=== PATIENT | female | born 1960 | race Caucasian/White ===

== ENCOUNTER 2023-10-31 13:03 | Inpatient (IN) | payer MEDICARE, OTHER, SELFPAY ==
[2023-10-31 14:17] VITALS: BP 134/89; PULSE 73; RESP 18; TEMP 36.8; O2SAT 96; O2SAT 97
--- NOTE | 2023-10-31 15:09 | PM.IMHP1 ---
Hospitalist- H&P: HPI History of Present Illness Date Seen: 11/01/23 Chief complaint: direct admit Narrative: Gina Perkins is a 63 year old female past medical history significant for migraine headaches, hyperlipidemia, MDD/anxiety, history of NSTEMI is admitted to medical floor from home for further management colonic abscess. Patient recently experienced abdominal pain with bloating, evaluated in urgent care on 10/16/2023 and diagnosed with diverticulitis. Was started on oral Ceftin and Flagyl which she completed on 10/23/2023. She had a follow-up visit in the clinic with Dr. Bernal on 10/22 and complained of still not being able to tolerate advancing her diet. She was having diarrhea at the time which has persisted without nausea or vomiting. She was not continued on any further antibiotics at that time. A follow-up visit on 10/25 reports improvement with diet and overall feeling better. She return to the clinic on 10/29 with cramping and diarrhea, >6 stools per day. And again, decrease in appetite. A CT of the abdomen pelvis obtained on 10/29 shows near complete resolution of inflammatory fat stranding adjacent to the sigmoid colon with minimal residual colonic wall thickening. However a new tiny 6 mm low-density fluid collection along the medial wall the sigmoid colon compatible with a tiny intramural abscesses noted. Dr. Bernal discussed this finding with Dr. Urrutia, general surgery, recommending outpatient IV antibiotics. Patient was contacted at home and outpatient IV antibiotic therapy was discussed. Per EMR, Patient states that the commute for IV antibiotics and necessity to be out of work is too difficult and requests hospitalization. She is admitted to the hospital for IV antibiotics, general surgery consult. Currently, patient denies dizziness. Has been having around of migraines, likely worsened with dehydration in setting of frequent stools. No fevers. Denies chest pain or shortness of breath. Denies nausea or vomiting. Having frequent loose foul-smelling stools. Having just completed oral antibiotic therapy for diverticulitis. Occasional cramping pains otherwise denies ongoing chronic pain. Nonsmoker. Denies alcohol use. Full code Review of Systems Narrative: REVIEW OF SYSTEMS: Complete review of systems performed and negative unless otherwise stated in HPI or below. [facility] Medical History (Updated 11/01/23 @ 11:13 by Sapphire M DeBus, PA-C) History of non-ST elevation myocardial infarction (NSTEMI) ?I25.2 - Old myocardial infarction (ICD-10) Hyperlipidemia ?E78.5 - Hyperlipidemia, unspecified (ICD-10) Migraine ?G43.909 - Migraine, unspecified, not intractable, without status migrainosus (ICD-10) History of diverticulitis ?Z87.19 - Personal history of other diseases of the digestive system (ICD-10) Depression ?F32.A - Depression, unspecified (ICD-10) Malignant melanoma of right shoulder ?C43.61 - Malignant melanoma of right upper limb, including shoulder (ICD-10) Heart attack ?I21.9 - Acute myocardial infarction, unspecified (ICD-10) Surgical History History of bunionectomy ?Z98.890 - Other specified postprocedural states (ICD-10) History of hysteroscopy ?Z98.890 - Other specified postprocedural states (ICD-10) History of ?Z98.891 - History of uterine scar from previous surgery (ICD-10) History of bilateral knee replacement ?Z96.653 - Presence of artificial knee joint, bilateral (ICD-10) Family History Father Diabetes High blood pressure Cancer of colon with rectum Paternal Grandfather Diabetes Mother FH: mental illness Family/Other FH: mental illness Social History What is your current living situation?: I presently have a place to live Problems where you live: no known problems Problems where you live details: none In the past 12 months, utilities in danger of being shut off: no In past 12 months, lack of transportation kept you from medical appts, meetings, work, or getting things needed for daily living: no In the past 12 mos, have been you worried that your food would run out before you had money to buy more?: never true In the past 12 mos, the food you bought just didn't last and you didn't have money to buy more?: never true Smoking Status: Never smoker How often do you have a drink containing alcohol: never AUDIT-C Alcohol total score: 0 Non-prescribed substance use: denies use How often does anyone, including family, friends and others, physically hurt you: never How often does anyone, including family, friends and others, insult or talk down to you: never How often does anyone, including family, friends and others, threaten you with harm: never How often does anyone, including family, friends and others, scream or curse at you: never Meds Home Medications and Allergies Home Medications ?Medication ?Instructions ?Recorded ?Confirmed ?Type ascorbate calcium (vitamin C) 500 500 mg PO DAILY 11/21/21 10/31/23 History mg tablet atorvastatin 40 mg tablet (Lipitor) 40 mg PO QPM 11/21/21 10/31/23 History calcium carbonate 500 mg-vitamin 1 tab PO DAILY 11/21/21 10/31/23 History D3 5 mcg (200 unit) tablet cholecalciferol (vitamin D3) 50 50 mcg PO DAILY 11/21/21 10/31/23 History mcg (2,000 unit) capsule metoprolol succinate 50 mg 50 mg PO DAILY 11/21/21 10/31/23 History tablet,extended release 24 hr multivitamin with minerals 1 cap PO DAILY 11/21/21 10/31/23 History nitroglycerin 0.4 mg sublingual 0.4 mg sublingual Q5M PRN 11/21/21 10/31/23 History tablet sumatriptan succinate 100 mg tablet 100 mg PO BID PRN 11/21/21 10/31/23 History aspirin 81 mg tablet,delayed 81 mg PO DAILY 10/31/23 10/31/23 History release desvenlafaxine succinate 100 mg 100 mg PO QAM 10/31/23 10/31/23 History tablet,extended release 24 hr meclizine 25 mg chewable tablet 25 mg PO TID PRN 10/31/23 10/31/23 History ([place]) Allergies Allergy/AdvReac Type Severity Reaction Status Date / Time Penicillins Allergy Verified 12/26/21 08:27 Exam Narrative: Exam Narrative: PHYSICAL EXAM General: Pleasant, conversant, NAD HEENT: Normocephalic, atraumatic, sclera white, EOMI, oral mucosa moist Cardiovascular: RRR, S1S2. No pitting edema Pulmonary: CTA bilaterally without rhonchi, rales, expiratory wheezes. No dyspnea on room air Abdominal: Soft, nondistended, in general NTTP, mild right lower quadrant tenderness with deep palpation Neurological: Alert, answering questions appropriately, cranial nerves intact, no focal findings Extremities: No gross joint deformity or swelling. AROMI. Neurovascularly intact Skin: Warm, dry. Hospitalist - H&P: Result Labs Labs: Obtain labs on admission - CBC, CMP, magnesium, phosphorus, CRP Imaging CT scan - abdomen: Attestation: I have reviewed the pertinent imaging results. Radiologist's impression: CT abdomen and pelvis acquired with 100 cc Omnipaque 350 IV contrast. ? COMPARISON: 10/23/2023. ? FINDINGS: Lower chest: Unremarkable. ? Liver: 1.5 centimeter cyst at the dome the right hepatic lobe. Unchanged benign calcification at the dome of the right hepatic lobe. No suspicious hepatic lesion. ? Gallbladder and bile ducts: Unremarkable. No stones or inflammation. No biliary dilatation. ? Pancreas: Unremarkable. No mass or inflammation. ? Spleen: Unremarkable. Normal in size. No masses. ? Adrenal glands: Unremarkable. No nodules. ? Kidneys: Unremarkable. No suspicious masses, stones, or hydronephrosis. ? GI tract: Stomach and small bowel normal. Normal appendix. Near complete resolution of inflammatory fat stranding adjacent to the wall of the sigmoid colon with minimal residual wall thickening. Tiny, 6 millimeter low-density fluid collection along the medial wall of the sigmoid colon, compatible with a tiny intramural abscess (series 2, image 173). No other fluid collection. No free intraperitoneal air. ? Vasculature: Abdominal aorta is normal in caliber. Mesenteric arteries are patent. ? Lymph nodes: No lymphadenopathy. ? Peritoneum/Abdominal Wall: Unremarkable. No sign of mass or infiltration. No free air or significant free fluid. ? Pelvis: Unremarkable. ? Bones: Mild spondylosis. No suspicious osseous lesion. ? IMPRESSION: Near-complete resolution of inflammatory fat stranding adjacent to the sigmoid colon with minimal residual colonic wall thickening. However, new tiny 6 millimeter low-density fluid collection along the medial wall of the sigmoid colon compatible with a tiny intramural abscess. No other fluid collection. No free intraperitoneal air. Assessment and Plan Assessment and plan (1) Abscess of sigmoid colon: Problem comment: CT shows 6 mm low-density fluid collection along the medial wall the sigmoid colon compatible with a tiny intramural abscess Started empirically on ertapenem 1 g Q 24 hours. Assessed by General surgery, Dr. Urrutia. Upon stool resulting positive for C diff, recommendation to discontinue ertapenem as can be managed conservatively without further antibiotics. Outpatient follow-up with PCP. Status: Acute (2) History of diverticulitis: Problem comment: Completed course of Ceftin and Flagyl 10/15-10/22 CT shows near complete resolution of inflammatory fat stranding adjacent to the sigmoid colon with minimal residual colonic wall thickening Status: Acute (3) Diarrhea: Problem comment: C diff positive. GI pathogen panel remains pending at time of discharge, patient denies known or suspected exposures. Status: Acute (4) Migraine: Problem comment: Continue home medications, received IVF hydration. Status: Acute (5) Hyperlipidemia: Problem comment: Continue statin Status: Acute (6) History of non-ST elevation myocardial infarction (NSTEMI): Problem comment: Continue aspirin Status: Acute Plan Possible discharge 1-2 days, pending General surgery recommendations, ongoing therapies Total Time Spent Total Time Spent: Total time spent caring for the patient today was 75 minutes. This includes time spent for the visit reviewing the chart, time spent during the visit, time spent after the visit and documentation and planning in coordination of care.
--- NOTE | 2023-10-31 15:37 | PM.GSCN ---
Documented by User: May Clayton Wirfs 10/31/23 16:58 History of Present Illness Consult details Time Seen by Provider: 14:45 Date Seen: 10/31/23 Consult date: 10/31/23 Reason for consult: abdominal pain Requesting physician: Sapphire Torres Narrative: Gina, a 63 year old female, with a PMH of a NSTEMI, migraine, hyperlipidemia, depression, and bilateral knee replacements, presents from [place] with diverticulitis and an abscess. On 10/13, patient began to have RLQ abdominal pain. Patient went to urgent care on 10/15, imaging was done, and patient was diagnosed with diverticulitis. Patient was discharged on Ceftin and Flagyl for 7 days. Has since finished her course. With the antibiotics, her symptoms improved some and she was able to advance her diet as tolerated. However, after the antibiotics were finished her symptoms began to persist and she got more imaging done on 10/22. Patient states this is when she was diagnosed with diverticulitis and an abscess. No further antibiotics were given. On 10/28 of this week, patient began to experience RLQ abdominal pain, diarrhea, chills, an increase in temperature above her baseline, and eye pain. She sought medical care and imaging was done on 10/29 which showed diverticulitis and an abscess without resolution. Patient was transferred to [facility] and General Surgery was consulted. Denies having had an episode like this before. Denies change in her routine other than eating [address] [employer] before the abdominal pain began on 10/15. Takes daily ASA, last dose today. No A/C use. Takes NSAIDs very rarely. No ETOH use or smoking history. No EGD history. Colonoscopies beginning at age 33 d/t family history of colon cancer. Diagnosed with diverticulosis. No history of blood clots or adverse reaction to anesthesia. Abdominal surgeries include 3 c-sections. Upon admission, reports having RLQ pain, diarrhea, and losing weight/decrease in appetite. Denies blood in diarrhea, vomiting, nausea, urinary symptoms, fever, or chills. Imaging: Labs: 10/15: 4.1 CRP, 8.9 WBC 10/29: 1.9 CRP. 8.9 WBC Review of Systems Status of ROS: Reports: 6 or more systems reviewed and unremarkable except as noted in History and below Narrative: Patient reports having RLQ pain, diarrhea, and losing weight/decrease in appetite. Denies blood in diarrhea, vomiting, nausea, urinary symptoms, fever, or chills. PFSH PFS Medical History (Updated 10/31/23 @ 15:45 by Sapphire Torres PA-C) History of non-ST elevation myocardial infarction (NSTEMI) ?I25.2 - Old myocardial infarction (ICD-10) Hyperlipidemia ?E78.5 - Hyperlipidemia, unspecified (ICD-10) Migraine ?G43.909 - Migraine, unspecified, not intractable, without status migrainosus (ICD-10) History of diverticulitis ?Z87.19 - Personal history of other diseases of the digestive system (ICD-10) Depression ?F32.A - Depression, unspecified (ICD-10) Malignant melanoma of right shoulder ?C43.61 - Malignant melanoma of right upper limb, including shoulder (ICD-10) Heart attack ?I21.9 - Acute myocardial infarction, unspecified (ICD-10) Surgical History History of bunionectomy ?Z98.890 - Other specified postprocedural states (ICD-10) History of hysteroscopy ?Z98.890 - Other specified postprocedural states (ICD-10) History of ?Z98.891 - History of uterine scar from previous surgery (ICD-10) History of bilateral knee replacement ?Z96.653 - Presence of artificial knee joint, bilateral (ICD-10) Family History Father Diabetes High blood pressure Cancer of colon with rectum Paternal Grandfather Diabetes Mother FH: mental illness Family/Other FH: mental illness Social History What is your current living situation?: I presently have a place to live Problems where you live: no known problems Problems where you live details: none In the past 12 months, utilities in danger of being shut off: no In past 12 months, lack of transportation kept you from medical appts, meetings, work, or getting things needed for daily living: no In the past 12 mos, have been you worried that your food would run out before you had money to buy more?: never true In the past 12 mos, the food you bought just didn't last and you didn't have money to buy more?: never true Smoking Status: Never smoker How often do you have a drink containing alcohol: never AUDIT-C Alcohol total score: 0 Non-prescribed substance use: denies use How often does anyone, including family, friends and others, physically hurt you: never How often does anyone, including family, friends and others, insult or talk down to you: never How often does anyone, including family, friends and others, threaten you with harm: never How often does anyone, including family, friends and others, scream or curse at you: never Meds Home Medications and Allergies Home Medications ?Medication ?Instructions ?Recorded ?Confirmed ?Type ascorbate calcium (vitamin C) 500 500 mg PO DAILY 11/21/21 10/31/23 History mg tablet atorvastatin 40 mg tablet (Lipitor) 40 mg PO QPM 11/21/21 10/31/23 History calcium carbonate 500 mg-vitamin 1 tab PO DAILY 11/21/21 10/31/23 History D3 5 mcg (200 unit) tablet cholecalciferol (vitamin D3) 50 50 mcg PO DAILY 11/21/21 10/31/23 History mcg (2,000 unit) capsule metoprolol succinate 50 mg 50 mg PO DAILY 11/21/21 10/31/23 History tablet,extended release 24 hr multivitamin with minerals 1 cap PO DAILY 11/21/21 10/31/23 History nitroglycerin 0.4 mg sublingual 0.4 mg sublingual Q5M PRN 11/21/21 10/31/23 History tablet sumatriptan succinate 100 mg tablet 100 mg PO BID PRN 11/21/21 10/31/23 History aspirin 81 mg tablet,delayed 81 mg PO DAILY 10/31/23 10/31/23 History release desvenlafaxine succinate 100 mg 100 mg PO QAM 10/31/23 10/31/23 History tablet,extended release 24 hr meclizine 25 mg chewable tablet 25 mg PO TID PRN 10/31/23 10/31/23 History ([place]) Allergies Allergy/AdvReac Type Severity Reaction Status Date / Time Penicillins Allergy Verified 12/26/21 08:27 Exam Narrative: Exam Narrative: General: Patient is seen sitting comfortably in bed. Non-toxic appearing. In no acute distress. Answering questions appropriately. HEENT: No trauma. Normocephalic. External ears normal. Respiratory: Clear to auscultation. Normal respiratory effort. No wheezing or rhonchi. Cardiovascular. RRR. GI: Non-distended. Soft. BS+. TTP lower and right of epigastric region. Progress Note:A&P Assessment and plan (1) Diarrhea: Status: Acute (2) Abscess of sigmoid colon: Status: Acute (3) History of diverticulitis: Status: Acute Plan May GARRIDO personally scribed for Dr. Urrutia. Time Spent With Patient Total time spent: 45 Documented by User: Rolanda Urrutia MD 10/31/23 17:19 History of Present Illness Consult details Consult date: 10/31/23 Narrative: Gina, a 63 year old female, with a PMH of a NSTEMI, migraine, hyperlipidemia, depression, and bilateral knee replacements, presents from [place] with diverticulitis and an abscess. On 10/13, patient began to have RLQ abdominal pain. Patient went to urgent care on 10/15, imaging was done, and patient was diagnosed with diverticulitis. Patient was discharged on Ceftin and Flagyl for 7 days. Has since finished her course. With the antibiotics, her symptoms improved some and she was able to advance her diet as tolerated. However, after the antibiotics were finished her symptoms began to persist and she got more imaging done on 10/22. No further antibiotics were given. On 10/28 of this week, patient began to experience RLQ abdominal pain, diarrhea, chills, an increase in temperature above her baseline, and eye pain. She sought medical care and imaging was done on 10/29 which showed diverticulitis which had nearly resolved but with a small intramural abscess. Outpatient antibiotic management was discussed, however the patient did not feel that she would be able to take in sufficient p.o. and therefore was referred to [facility] for IV antibiotics and bowel rest. She states that the pain is intermittent and worse when she has bowel movements. She has been having loose stools ?since the pain began. They did not resolve after stopping antibiotics. Denies having had an episode like this before. Denies change in her routine other than eating [place] [place] before the abdominal pain began on 10/15. Takes daily ASA, last dose today. No A/C use. Takes NSAIDs very rarely. No ETOH use or smoking history. No EGD history. Colonoscopies beginning at age 33 d/t family history of colon cancer she is due for another colonoscopy next year. She gets colonoscopies every 5 years. She has been previously diagnosed with diverticulosis. No history of blood clots or adverse reaction to anesthesia. Abdominal surgeries include 3 c-sections. Upon admission, reports having RLQ pain, diarrhea, and losing weight/decrease in appetite. Denies blood in diarrhea, vomiting, nausea, urinary symptoms, fever, or chills. [facility] Medical History (Updated 10/31/23 @ 15:45 by Sapphire Torres PA-C) History of non-ST elevation myocardial infarction (NSTEMI) ?I25.2 - Old myocardial infarction (ICD-10) Hyperlipidemia ?E78.5 - Hyperlipidemia, unspecified (ICD-10) Migraine ?G43.909 - Migraine, unspecified, not intractable, without status migrainosus (ICD-10) History of diverticulitis ?Z87.19 - Personal history of other diseases of the digestive system (ICD-10) Depression ?F32.A - Depression, unspecified (ICD-10) Malignant melanoma of right shoulder ?C43.61 - Malignant melanoma of right upper limb, including shoulder (ICD-10) Heart attack ?I21.9 - Acute myocardial infarction, unspecified (ICD-10) Surgical History History of bunionectomy ?Z98.890 - Other specified postprocedural states (ICD-10) History of hysteroscopy ?Z98.890 - Other specified postprocedural states (ICD-10) History of ?Z98.891 - History of uterine scar from previous surgery (ICD-10) History of bilateral knee replacement ?Z96.653 - Presence of artificial knee joint, bilateral (ICD-10) Family History Father Diabetes High blood pressure Cancer of colon with rectum Paternal Grandfather Diabetes Mother FH: mental illness Family/Other FH: mental illness Social History What is your current living situation?: I presently have a place to live Problems where you live: no known problems Problems where you live details: none In the past 12 months, utilities in danger of being shut off: no In past 12 months, lack of transportation kept you from medical appts, meetings, work, or getting things needed for daily living: no In the past 12 mos, have been you worried that your food would run out before you had money to buy more?: never true In the past 12 mos, the food you bought just didn't last and you didn't have money to buy more?: never true Smoking Status: Never smoker How often do you have a drink containing alcohol: never AUDIT-C Alcohol total score: 0 Non-prescribed substance use: denies use How often does anyone, including family, friends and others, physically hurt you: never How often does anyone, including family, friends and others, insult or talk down to you: never How often does anyone, including family, friends and others, threaten you with harm: never How often does anyone, including family, friends and others, scream or curse at you: never Meds Home Medications and Allergies Home Medications ?Medication ?Instructions ?Recorded ?Confirmed ?Type ascorbate calcium (vitamin C) 500 500 mg PO DAILY 11/21/21 10/31/23 History mg tablet atorvastatin 40 mg tablet (Lipitor) 40 mg PO QPM 11/21/21 10/31/23 History calcium carbonate 500 mg-vitamin 1 tab PO DAILY 11/21/21 10/31/23 History D3 5 mcg (200 unit) tablet cholecalciferol (vitamin D3) 50 50 mcg PO DAILY 11/21/21 10/31/23 History mcg (2,000 unit) capsule metoprolol succinate 50 mg 50 mg PO DAILY 11/21/21 10/31/23 History tablet,extended release 24 hr multivitamin with minerals 1 cap PO DAILY 11/21/21 10/31/23 History nitroglycerin 0.4 mg sublingual 0.4 mg sublingual Q5M PRN 11/21/21 10/31/23 History tablet sumatriptan succinate 100 mg tablet 100 mg PO BID PRN 11/21/21 10/31/23 History aspirin 81 mg tablet,delayed 81 mg PO DAILY 10/31/23 10/31/23 History release desvenlafaxine succinate 100 mg 100 mg PO QAM 10/31/23 10/31/23 History tablet,extended release 24 hr meclizine 25 mg chewable tablet 25 mg PO TID PRN 10/31/23 10/31/23 History (Bonine) Allergies Allergy/AdvReac Type Severity Reaction Status Date / Time Penicillins Allergy Verified 12/26/21 08:27 Exam Narrative: Exam Narrative: General: Patient is seen sitting comfortably in bed. Non-toxic appearing. In no acute distress. Answering questions appropriately. HEENT: No trauma. Normocephalic. External ears normal. Respiratory: Clear to auscultation. Normal respiratory effort. No wheezing or rhonchi. Cardiovascular. RRR. GI: Non-distended. Soft. BS+. Mildly TTP lower and right of epigastric region. Results Labs Labs: 10/15: 4.1 CRP, 8.9 WBC 10/29: 1.9 CRP. 8.9 WBC Imaging Ab[address] CT scan report/results: report reviewed and image reviewed Additional studies: [facility] scan from [facility] on 10/16/2023: IMPRESSION: Acute diverticulitis sigmoid colon without evidence of abscess. CT scan from 10/23/2023: IMPRESSION: 1. Mildly improved but persistent uncomplicated sigmoid diverticulitis. Further imaging is recommended following the acute episode to exclude possibility of underlying mass. CT scan from 10/30/2023: IMPRESSION: Near-complete resolution of inflammatory fat stranding adjacent to the sigmoid colon with minimal residual colonic wall thickening. However, new tiny 6 millimeter low-density fluid collection along the medial wall of the sigmoid colon compatible with a tiny intramural abscess. No other fluid collection. No free intraperitoneal air. Progress Note:A&P Assessment and plan (1) Diarrhea: Status: Acute (2) Abscess of sigmoid colon: Status: Acute (3) History of diverticulitis: Status: Acute Plan The patient is 63-year-old female with likely resolving diverticulitis though with possible small 6 mm persistent abscess. Since she has completed outpatient management of IV antibiotics but has persistent symptoms IV antibiotics was recommended. She did not feel she would be able to manage as an outpatient because of inability to take in p.o. therefore she was admitted for observation. We discussed diverticulitis, pathology and management. I explained that with uncomplicated diverticulitis, 30% of people will recur. This can sometimes be managed without antibiotics and with bowel rest alone. Emergency surgery is indicated in the setting of perforation and peritonitis. Elective surgery is considered for multiple recurrent episodes, perforation with large abscess and or complications from diverticulitis treatment. I believe most of her symptoms are secondary to diarrhea that she has been having since she describes abdominal cramping and then loose stools. Stool cultures and C diff are pending. White blood cell count at [facility] was normal in CRP was trending down, however if C diff appears to be the culprit, then I would recommend treating with oral vancomycin. -for now clear liquid diet and IV ertapenem. -may be able to discharge on IV antibiotics for 7-10 days depending on clinical course. -advance diet once patient's pain has resolved. May RODRIGUEZS personally scribed portions of this note for Dr. Urrutia.
[2023-10-31] MEDS: 0.9 % SODIUM CHLORIDE 1000 ml 1,000 ML 125 ML IV (15:46)
[2023-10-31] MEDS: ERTAPENEM 1 GM in 0.9 % SODIUM CHLORIDE Mini-bag 100 ML IVPB (15:46)
[2023-10-31 16:45] VITALS: BP 115/78; BP 123/87; BP 131/87; PULSE 69; PULSE 75; PULSE 81
[2023-10-31 17:32] LABS: Basophils Absolute Auto 0.05 K/uL (0.00-0.30); Basophils Percent Auto 0.8 % (0.0-3.0); Eosinophils Absolute Auto 0.14 K/uL (0.00-0.50); Eosinophils Percent Auto 2.4 % (0.0-7.0); Hematocrit 42.9 % (33.0-51.0); Hemoglobin* 13.8 gm/dL (12.0-16.0); Lymphocytes Absolute Auto 1.72 K/uL (0.90-2.90); Lymphocytes Percent Auto 29.2 % (20-44); Mean Corpuscular HGB Conc 32 gm/dL (32-36); Mean Corpuscular Hemoglobin 30 pg (26-34); Mean Corpuscular Volume 92 fL (80-100); Monocytes Percent Auto 10.5 % (0.0-11.0); Neutrophils Absolute Auto 3.37 K/uL (1.7-7.0); Neutrophils Percent Auto 57.1 % (42.0-72.0); Platelet Count* 250 K/uL (140-440); RDW Coefficient of Variation % 12.1 % (11.5-15.5); Red Blood Count 4.68 m/uL (4.00-5.20)
[2023-10-31 17:33] LABS: Slide Review Reflex No
[2023-10-31 17:48] LABS: Albumin* 4.5 g/dL (3.3-5.0); Chloride* 99 mmol/L (96-114); Sodium* 137 mmol/L (135-149)
[2023-10-31 17:49] LABS: Potassium* 4.3 mmol/L (3.6-5.1)
[2023-10-31 17:50] LABS: Creatinine* 0.7 mg/dL (0.5-1.5); Estimated Glomerular Filt Rate 96 ml/min
[2023-10-31 17:51] LABS: Alanine Aminotransferase* 25 U/L (4-35); Alkaline Phosphatase* 83 U/L (40-150); Anion Gap 10 mEq/L (7-15); Aspartate Amino Transferase* 40 U/L (12-35); Bilirubin Total* 0.6 mg/dL (0.1-1.5); Blood Urea Nitrogen* 13 mg/dL (7-30); Carbon Dioxide* 28 mmol/L (20-32); Glucose* 91 mg/dL (60-115); Total Protein* 7.3 g/dL (6.0-8.3)
[2023-10-31 17:52] LABS: Calcium* 9.3 mg/dL (8.4-10.6); Magnesium* 2.1 mg/dL (1.5-2.6); Phosphorus* 3.6 mg/dL (2.5-4.5)
[2023-10-31 17:54] LABS: C Reactive Protein* 0.6 mg/dL (0.5-1.0)
[2023-10-31 19:00] VITALS: BP 115/75; PULSE 73; RESP 18; TEMP 36.6; O2SAT 98
--- NOTE | 2023-10-31 19:04 | PC.NURSE ---
The patient arrived to the floor this afternoon after recommendation from the clinic. Presents with many days of diarrhea and decreased PO intake/appetite. The patient rates her pain at 2/10 in her RLQ. Stool sample was collected and given to lab. Up ad alejandro. Normal saline infusing @ 125. Iv abx infused. NPO, and surgical consult was completed. Call light within the patients reach. The patient appears to be comfortable and is talking on the phone. Amy VIZCAINO BSN
[2023-10-31 19:27] LABS: CDIFFEPI 027 PRESUMPTIVE NEGATIVE (Negative)
[2023-10-31 19:45] LABS: C.Difficile POSITIVE (Negative)
[2023-10-31] MEDS: ENOXAPARIN 30 MG/0.3ML INJ SUBCUT (21:01)
[2023-10-31] MEDS: VANCOMYCIN 125 MG CAPSULE PO (21:01)
[2023-10-31 23:00] VITALS: RESP 18
[2023-11-01] MEDS: 0.9 % SODIUM CHLORIDE 1000 ml 1,000 ML 125 ML IV (00:17)
[2023-11-01 00:21] VITALS: BP 111/70; PULSE 66; RESP 18; TEMP 36.8; O2SAT 95
[2023-11-01 03:00] VITALS: BP 116/71; PULSE 85; RESP 18; TEMP 37.3; O2SAT 96
[2023-11-01 06:37] LABS: Hematocrit 39.8 % (33.0-51.0); Hemoglobin* 12.9 gm/dL (12.0-16.0); Mean Corpuscular HGB Conc 32 gm/dL (32-36); Mean Corpuscular Hemoglobin 30 pg (26-34); Mean Corpuscular Volume 92 fL (80-100); Platelet Count* 214 K/uL (140-440); Red Blood Count 4.34 m/uL (4.00-5.20); White Blood Count* 8.48 K/uL (4.50-11.00)
[2023-11-01 06:44] LABS: Slide Review Reflex No
[2023-11-01 06:53] LABS: Chloride* 106 mmol/L (96-114); Sodium* 138 mmol/L (135-149)
[2023-11-01 06:54] LABS: Potassium* 3.4 mmol/L (3.6-5.1)
[2023-11-01 06:56] LABS: Creatinine* 0.6 mg/dL (0.5-1.5); Estimated Glomerular Filt Rate 100 ml/min
[2023-11-01 06:57] LABS: Anion Gap 11 mEq/L (7-15); Blood Urea Nitrogen* 10 mg/dL (7-30); Calcium* 8.5 mg/dL (8.4-10.6); Carbon Dioxide* 21 mmol/L (20-32); Glucose* 69 mg/dL (60-115)
--- NOTE | 2023-11-01 07:21 | PC.NURSE ---
: Pleasant and cooperative. Indep in room. Reports only 1 loose stool this shift. No c/o n/v.?Educated pt on new Dx of CDiff, questions answered. ?
[2023-11-01 08:44] VITALS: BP 123/75; PULSE 75; PULSE 85; RESP 16; RESP 18; TEMP 36.6; O2SAT 98
[2023-11-01] MEDS: VANCOMYCIN 125 MG CAPSULE PO (10:00)
[2023-11-01 11:00] VITALS: BP 119/72; PULSE 75; RESP 16; O2SAT 97
--- NOTE | 2023-11-01 11:08 | PM.DS1 ---
DS: Providers Provider Date Seen: 11/01/23 Date of admission: 10/31/23 15:05 Primary care physician: Not a Local Provider Admitting Clinician: Sapphire Torres PA-C Consults: 10/31/23 15:07 Consult to Physician [CONS] Routine Comment: Consulting Provider: Rolanda Urrutia Has provider been notified: Yes Attending Physician on discharge[facility]: [facility]23 DS: Diagnosis Discharge Diagnosis (1) Clostridioides difficile diarrhea: Status: Acute Problem details: Stool test positive. Started on oral vancomycin q.i.d. times 10 days. Stool frequency decreasing prior to discharge. Patient reports no further abdominal pain/cramping. (2) Abscess of sigmoid colon: Status: Acute Problem details: CT shows 6 mm low-density fluid collection along the medial wall the sigmoid colon compatible with a tiny intramural abscess Started empirically on ertapenem 1 g Q 24 hours. Assessed by General surgery, Dr. Urrutia. Upon stool resulting positive for C diff, recommendation to discontinue ertapenem as can be managed conservatively without further antibiotics. Outpatient follow-up with PCP. (3) History of diverticulitis: Status: Acute Problem details: Completed course of Ceftin and Flagyl 10/15-10/22 CT shows near complete resolution of inflammatory fat stranding adjacent to the sigmoid colon with minimal residual colonic wall thickening (4) Diarrhea: Status: Acute Problem details: C diff positive. GI pathogen panel remains pending at time of discharge, patient denies known or suspected exposures. (5) Migraine: Status: Acute Problem details: Continue home medications, received IVF hydration. (6) Hyperlipidemia: Status: Acute Problem details: Continue statin (7) History of non-ST elevation myocardial infarction (NSTEMI): Status: Acute Problem details: Continue aspirin DS: Summary Hospital Course Hospital Course: [age] year old female was admitted to the medical floor for diarrhea, concern for 6 mm colon abscess. Course of care and details as noted above. Initiated on IV ertapenem, discontinued when C difficile resulted positive. Discharged to home with oral vancomycin for 10 day course. Outpatient follow-up with PCP. Remainder of chronic medical comorbidities were monitored and managed with home medications. Status at Discharge Functional status at discharge: independent ambulation Overall status at discharge: patient is back to baseline Time Spent with Patient Time attestation: Total time spent providing and/or coordinating discharge services: Time spent: Greater than 30 minutes Exam Narrative: Exam Narrative: PHYSICAL EXAM General: Pleasant, conversant, NAD Cardiovascular: RRR Pulmonary: No dyspnea Neurological: Alert, answering questions appropriately Skin: Warm, dry. Const: Vital Signs, click to edit/add: Vital Signs - 24 hr 10/31/23 14:17 10/31/23 14:17 10/31/23 16:45 Temperature 98.3 F Pulse Rate [Right Pulse Oximeter] 73 Pulse Rate [orthos tatic lying Pulse Oximeter] 69 Pulse Rate [orthos tatic sitting Puls e Oximeter] 75 Pulse Rate [orthos tatic standing Pul se Oximeter] 81 Respiratory Rate 18 18 Blood Pressure [Ri ght Arm] 134/89 Blood Pressure [or thostatic lying Ri ght Arm] 115/78 Blood Pressure [or thostatic sitting Right Arm] 123/87 Blood Pressure [or thostatic standing Right Arm] 131/87 Pulse Oximetry 96 97 Oxygen Delivery Me thod Room Air Room Air 10/31/23 19:00 10/31/23 23:00 11/01/23 00:21 Temperature 97.8 F 98.3 F Pulse Rate [Right Pulse Oximeter] 73 66 Pulse Rate [orthos tatic lying Pulse Oximeter] Pulse Rate [orthos tatic sitting Puls e Oximeter] Pulse Rate [orthos tatic standing Pul se Oximeter] Respiratory Rate 18 18 18 Blood Pressure [Ri ght Arm] 115/75 111/70 Blood Pressure [or thostatic lying Ri ght Arm] Blood Pressure [or thostatic sitting Right Arm] Blood Pressure [or thostatic standing Right Arm] Pulse Oximetry 98 95 Oxygen Delivery Me thod Room Air Room Air 11/01/23 03:00 11/01/23 08:44 11/01/23 08:44 Temperature 99.2 F 97.9 F Pulse Rate [Right Pulse Oximeter] 85 85 75 Pulse Rate [orthos tatic lying Pulse Oximeter] Pulse Rate [orthos tatic sitting Puls e Oximeter] Pulse Rate [orthos tatic standing Pul se Oximeter] Respiratory Rate 18 18 16 Blood Pressure [Ri ght Arm] 116/71 123/75 Blood Pressure [or thostatic lying Ri ght Arm] Blood Pressure [or thostatic sitting Right Arm] Blood Pressure [or thostatic standing Right Arm] Pulse Oximetry 96 98 Oxygen Delivery Me thod Room Air Room Air DS: Data Data Completed and Pending Pending studies at discharge: GI pathogen panel Labs on day of discharge: Labs from last 24 hours 11/01/23 10/31/23 10/31/23 05:59 18:00 17:20 WBC 8.48 5.90 RBC 4.34 4.68 Hgb 12.9 13.8 Hct 39.8 42.9 MCV 92 92 MCH 30 30 MCHC 32 32 RDW Coeff of Eve 12.1 Plt Count 214 250 Neut % (Auto) 57.1 Lymph % (Auto) 29.2 Pender % (Auto) 10.5 Eos % (Auto) 2.4 Baso % (Auto) 0.8 Neut # (Auto) 3.37 Lymph # (Auto) 1.72 Pender # (Auto) 0.60 Eos # (Auto) 0.14 Baso # (Auto) 0.05 Abs Immat Gran (auto) 0.00 Imm/Tot Granulo (auto) 0.0 Sodium 138 137 Potassium 3.4 L 4.3 Chloride 106 99 Carbon Dioxide 21 28 Anion Gap 11 10 BUN 10 13 Creatinine 0.6 0.7 Estimated GFR 100 96 Glucose 69 91 Calcium 8.5 9.3 Phosphorus 3.6 Magnesium 2.1 Total Bilirubin 0.6 AST 40 H ALT 25 Alkaline Phosphatase 83 C-Reactive Protein 0.6 Total Protein 7.3 Albumin 4.5 Stl C. cayetanensis PCR Pending Stool Rotavirus A PCR Pending Stool Adenovirus (PCR) Pending Stool Astrovirus (PCR) Pending Stool Campylobacter PCR Pending Stl C. diff Tox B Gene POSITIVE A* Stl C. diff [id number] PRESUMPTIVE NEGATIVE Stool Cryptosporidium PCR Pending Stl E.coli Shiga Tox PCR Pending Stool E coli O157 PCR Pending Stl Enterotoxigenic E PCR Pending Stool EPEC (PCR) Pending Stool EAEC (PCR) Pending Stl E. histolytica PCR Pending Stool Giardia Lamblia PCR Pending Stl P. shigelloides PCR Pending Stool Salmonella PCR Pending Stool Sapovirus (PCR) Pending Stl Shigella/EIEC PCR Pending St Y.enterocolitica PCR Pending Stool Vibrio (PCR) Pending Stl Vibrio cholerae PCR Pending Stl Norovirus GI/GII PCR Pending Discharge Plan Discharge Disposition: Home, Self-Care Date of Admission: 10/31/23 15:05 Attending Provider on Discharge: Sapphire Torres Consulting Providers: Rolanda Urrutia Primary Care Provider: Provider,Not a Local Condition: Improved Anticipated Discharge Date/Time: 11/01/23 10:21 Discharge Medications: New vancomycin 125 mg Capsule 125 mg PO QID 10 Days Qty: 40 0RF Continued ascorbate calcium (vitamin C) 500 mg tablet 500 mg PO DAILY atorvastatin [Lipitor] 40 mg tablet 40 mg PO QPM calcium carbonate-vitamin D3 500 mg-5 mcg (200 unit) tablet 1 tab PO DAILY cholecalciferol (vitamin D3) 50 mcg (2,000 unit) capsule 50 mcg PO DAILY metoprolol succinate 50 mg tablet extended release 24 hr 50 mg PO DAILY multivitamin with minerals Capsule 1 cap PO DAILY nitroglycerin 0.4 mg tablet, sublingual 0.4 mg sublingual Q5M PRN Rx Instructions: do not exceed 3 doses per episode sumatriptan succinate 100 mg tablet 100 mg PO BID PRN aspirin 81 mg tablet,delayed release (DR/EC) 81 mg PO DAILY desvenlafaxine succinate 100 mg tablet extended release 24 hr 100 mg PO QAM meclizine [Bonine] 25 mg tablet,chewable 25 mg PO TID PRN Discharge Orders: Discharge Order (Routine); Ordered 11/01/23 Ordered By: Sapphire Torres Patient Education: Vancomycin (By mouth), C. Diff (Clostridioides Difficile) Infection (GEN) Activity Level: No Restrictions Discharge Diet: Regular Diet Detail: BRAT diet, yogurt with live cultures Follow Up Appointments: Lesvia Bernal MD [Staff Physician] - 11/12/23 1:00 pm ([facility] for follow-up.) Forms: [employer] Info Instructions
--- NOTE | 2023-11-01 13:15 | PC.NURSE ---
Nursing Care Hours: [id number] Pt this shift calm and cooperative, alert and oriented. Independent in the room. No c/o pain. Teary eyed when talking about c.diff and symptoms. Pt states I feel dirty and signs of feeling ashamed. Discussed it being a somewhat common consequence of antibiotics and that it is nothing she did wrong. Also talked about different sources of probiotics. Advanced to regular diet with coffee. Pt had two loose stools afterwards which she questioned. Discussed that we will expect some loose stools for the next couple of days but it should slow down and start bulking. Denies cramps. Also discussed holding back on coffee as this is a natural laxative effect. IV removed for discharge. Forms signed. Pt ambulated off the unit in stable condition.
[2023-11-03 01:57] LABS: Adenovirus PCR Not Detected; Astrovirus PCR Not Detected; Campylobacter PCR Not Detected; Cryptosporidium PCR Not Detected; Cyclospora cayetanensis PCR Not Detected; Entamoeba histolytica PCR Not Detected; Enteroaggregative E coli PCR Not Detected; Enteropathogenic E coli PCR Not Detected; Enterotoxigenic E coli PCR Not Detected; Giardia lamblia PCR Not Detected; Norovirus Gi/GII PCR Detected; Plesiomonas shig PCR Not Detected; Rotavirus A PCR Not Detected; Salmonella PCR Not Detected; Sapovirus PCR Not Detected; Shiga toxin E coli PCR Not Detected; Shigella/Enteroinvasive E coli Not Detected; Vibrio PCR Not Detected; Vibrio cholerae PCR Not Detected; Yersinia enterocolitica PCR Not Detected
== END 2023-11-01 11:42 | disposition home or self-care (01) | DRG 372 ==
PROVIDERS: Admitting Provider Physician Assistant; Visit Provider Family Medicine
DX: A04.72 Enterocolitis due to Clostridium difficile, not specified as recurrent (principal); K57.20 Diverticulitis of large intestine with perforation and abscess without bleeding; A08.11 Acute gastroenteropathy due to Norwalk agent; G43.909 Migraine, unspecified, not intractable, without status migrainosus; I25.2 Old myocardial infarction; R10.31 Right lower quadrant pain; F32.9 Major depressive disorder, single episode, unspecified; F41.9 Anxiety disorder, unspecified; E78.5 Hyperlipidemia, unspecified; Z96.653 Presence of artificial knee joint, bilateral
CPT/HCPCS: 36415; 80048; 80053; 83735; 84100; 85025; 85027; 86140; 87493; 87505; J1335; J1650; J7030

== ENCOUNTER 2024-10-14 19:08 | Emergency (ER) | payer MEDICARE, OTHER, SELFPAY ==
--- OUTSIDE RECORDS SUMMARY | 2024-10-14 19:13 | XMS_ITS | Clinical Summary ---
Author Organization [facility] Address [address] [place] [id number] Care Team Providers Care Youth Associate Name Role Phone Lesvia Bernal MD Primary Care Prov ider Allergies Active Allergy Reactions Criticality Noted Date Comments Mirtazapine Other - Describe In Comment Field 06/10/2021 Over-sedated, groggy, out of it for 5 days Penicillins Rash 11/13/2013 Medications multivitamin (MVI) tablet Take 1 tablet by mouth once daily. 0 5 Active ascorbic acid (VITAMIN C) 500 mg tablet Take 1 tablet by mouth once daily. 0 6 Active calcium with vitamin D3 (CALCIUM 500+D) tablet Take 1 tablet by mouth once daily with a meal. 0 7 Active aspirin (ECOTRIN) 81 mg enteric coated tablet Take 1 tablet by mouth once daily with a meal. 0 7 Active nitroglycerin (NITROSTAT) 0.4 mg sublingual tabletIndications:N STEMI (non-ST elevated myocardial infarction) (HC) Place 1 tablet under the tongue every 5 minutes if needed for Chest Pain (first choice for chest pain). 1 Bottle 1 8 Active Cholecalciferol, Vitamin D3, 2,000 unit tabletIndications:M ixed hyperlipidemia Take 1 tablet by mouth once daily. 0 8 Active atorvastatin (LIPITOR) 40 mg tabletIndications:M ixed hyperlipidemia Take 1 Tablet (40 mg) by mouth once daily with evening meal. 90 Tablet 3 5 Active metoprolol succinate (TOPROL XL) 50 mg sustained-release tabletIndications:M igraine with aura and without status migrainosus, not intractable Take 1 Tablet (50 mg) by mouth once daily. 90 Tablet 3 5 Active SUMAtriptan (IMITREX) 100 mg tabletIndications:M igraine with aura and without status migrainosus, not intractable TAKE ONE TABLET BY MOUTH TWICE A DAY NEEDED FOR MIGRAINE. TAKE AT MINIMUM OF 2 HOURS APART. MAX DOSE 200MG / 24HRS 18 Tablet 2 5 Active desvenlafaxine succinate 100 mg extended release tabletIndications:A nxiety Take 1 Tablet (100 mg) by mouth once daily in the morning. 90 Tablet 3 5 Active meclizine 25 mg tabletIndications:V ertigo Take 1 Tablet (25 mg) by mouth 3 times daily if needed for Motion Sickness or Vertigo. 30 Tablet 5 Active Active Problems Problem Noted Date Diagnosed Date Moderate episode of recurrent major depressive d isorder 02/27/2024 Clostridioides difficile diarrhea 11/07/2023 Overview (11/07/2023): Stool test positive. Started on oral vancomycin q.i.d. times 10 days. Stool frequency decreasing prior to discharge. Patient reports no further abdominal pain/cramping. Abscess of sigmoid colon 11/07/2023 Overview (11/07/2023): CT shows 6 mm low-density fluid collection along the medial wall the sigmoid colon compatible with a tiny intramural abscess Started empirically on ertapenem 1 g Q 24 hours. Assessed by General surgery, Dr. Urrutia. Upon stool resulting positive for C diff, recommendation to discontinue ertapenem as can be managed conservatively without further antibiotics. Outpatient follow-up with PCP. Diarrhea 11/07/2023 Overview (11/07/2023): C diff positive. GI pathogen panel remains pending at time of discharge, patient denies known or suspected exposures. 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 NL EF w Septal WMA. Medical Mgmt. 04/10/2015 Overview (11/22/2015): Too small to stent 03/2015 Family history of colon cancer 04/07/2015 Overview (04/07/2015): Colonoscopy 03/2015 normal repeat in 5 years Hyperlipidemia 03/26/2015 Osteopenia 04/02/2014 Overview (04/02/2014): DEXA 08/01/11 MDD (major depressive disorder) 11/13/2013 Overview (05/30/2021): Has been on Wellbutrin since 2014 and celexa since 2013(recently stopped). Tried zoloft in 2019. Effexor 2019. Cymbalta(possible colitis) see Celotor testing Migraines 11/13/2013 Resolved Problems Problem Noted Date Diagnosed Date Resolved Date Anxiety 11/20/2016 11/20/2016 Anticoagulation monitoring, special range (1.8-2.5) 12/17/2015 10/25/2017 Knee joint replaced by other means 12/17/2015 10/25/2017 Immunizations Immunization Administration Dates Next Due COVID-19 vaccine (Moderna 100mcg/0.5mL) PF, MDV 05/05/2020 COVID-19 vaccine (Pfizer-Bio NTech 30mcg/0.3mL) 12YO+ BIVALENT PF, MDV 03/03/2022 Hepatitis A (Adult) 04/13/2004,06/23/2003 Hepatitis B (Adult) 11/20/2003,09/01/2003,2003 Influenza A (H1N1), Inactiva inessa (Age >=3 Years) 03/26/2009 Influenza Virus, Unspecified 12/20/2014 Influenza, IIV3 (Age >=3 years) 11/12/19 13,11/07/2011,11/24/2010,2009,10/22/2008,03/06/2007,12/15/2005 Influenza, IIV4 03/03/2022,,12/10/2019,2018,11/05/2017,11/22/2015,11/13/2013 Influenza, IIV4 (=>6mos) MDV 12/14/2022,12/08/19 17 Influenza, Inactivated IIV3 (Age 65+ Years) Preserv Free 11/13/2023 MMR 01/28/2008,12/24/2007 Tdap 09/23/2020,03/26/2009 Zoster (Shingrix-RZV, recombinant) 02/05/2020, Zoster (Zostavax-ZVL, live) 05/30/2010 Family History Medical History Relation Name Comments Cancer-colon Father Hypertension Father Psychiatric illness Mother depressi on, suicide Diabetes Paternal Grandmother Cancer-breast No Family History Cancer-ovarian No Family History Relation Name Status Comments Brother Alive Daughter 1 Alive Daughter 2 Alive Father Maternal Grandfather Maternal Grandmother Mother (Age 47) suicide Paternal Grandfather Paternal Grandmother Sister 1 Alive Sister 2 Alive Son Alive Social History Tobacco Use Types Packs/Day Years Used Date Smoking Tobacco: Former Cigarettes Q uit: 11/13/1981 Smokeless Tobacco: Never Tobacco Cessation:Counseling Given: Yes Comments:quit 1982 Alcohol Use Standard Drinks/Week Comments No 0 (1 standard drink = 0.6 oz pur e alcohol) PHQ-2 Answer Date Recorded PHQ-2 TOTAL SCORE 2 05/12/2024 Alcohol Use Answer Date Recorded How often do you have a drink containing alcohol ? 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 Not on file Not on file Not on file Obstetrics History Para Term AB IAB SAB Ectopic Multiple Livin g Live Births 3 3 3 3 Date Outcome GA Total Labor Labor/2nd/3rd Weight Sex Type Anes PTL Jessica A1 A5 Name Clin Term Term Term Last Filed Vital Signs Vital Sign Reading Time Taken Comments Blood Pressure 128/83 06/25/2024 8:48 AM CDT Pulse 67 06/25/2024 8:48 AM CDT Temperature 36.8 C (98.3 F) 10/19/2023 10:34 AM CDT Respiratory Rate 16 10/16/2023 1:45 PM CDT Oxygen Saturation 96% 06/25/2024 8:48 AM CDT Inhaled Oxygen Concentration - - Weight 68.1 kg (150 lb 3.2 oz) 06/25/2024 8:48 A M CDT Height 163 cm (5' 4.17) 02/27/2024 8:13 AM KITCHEN BATH DESIGNER Body Mass Index 25.64 02/27/2024 8:13 AM KITCHEN BATH DESIGNER Plan of Treatment Health Maintenance Due Date Last Done Comments Pneumococcal series for age 50+ (1 of 2 - PCV) 1977 RSV vaccine for adults or (1 - Risk 60-74 years 1-dose series) 2018 DEXA/DXA scan for age 65+ 09/28/2023 COVID-19 vaccine series ( season) 2024 03/10/2024, 03/03/2022, 03/25/2021, Additional history exists Influenza Vaccine (#1) 2024 , 12/14/2022, 03/03/2022, Additional history exists BMI (ht and wt on same day) for age 18+ 02/26/2025 02/27/2024, 10/06/2022, 03/15/2022, Additional history exists Medicare Wellness for age 65+ 02/27/2025 02/27/2024 Mammogram for age 45-75 05/08/2025 05/09/19, 04/29/2024, 12/19/2022, Additional history exists Depression screening for age 12+ 05/14/2025 05/14/2024, 05/13/2024, 05/12/2024, Additional history exists Colonoscopy through age 75 12/31/202812/31, 01/01/2024, 04/13/2020, Additional history exists Lipids for age 45-75 02/26/2029 02/27/2024, 10/06/2022, 05/12/2020, Additional history exists Tetanus booster 09/23/2030 09/23/2020, 03/26/2009 Hepatitis B series for 19+ Completed 11/19, 09/01/2003, 06/24/2003 Zoster (shingles) series for age 50+ Completed 02/05/2020, 12/10/2019, 05/30/2010 Hepatitis C screening for ag e 18-79 Completed 09/23/2020 Procedures Procedure Name Priority Date/Time Associated Diagnosis Comments XR MAMMO TITO UNI ADDL VIEWS RIGHT MARCELA 05/08/2024 2:11 PM CDT Abnormal mammogram LIPID PANEL Routine 02/27/2024 8:49 AM KITCHEN BATH DESIGNER Mixed hyperlipidemia NSTEMI - due to severe 1st Septal Strip 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 NL EF w Septal WMA. Medical Mgmt. COLONOSCOPY DIAGNOSTIC Routine 01/01/2024 12:00 AM KITCHEN BATH DESIGNER Acute diverticulitis ANTI HCV Routine 09/23/2020 10:23 AM CDT Need for hepatitis C screening test from Last 3 Months or Most Recently Relevant to Health Maintenance Results * XR MAMMO TITO UNI ADDL VIEWS RIGHT (05/08/2024 2:11 PM CDT) Anatomical Region Laterality Modality BREASTS, Breast Right Mammograph y 05/08/2024 2:28 PM CDT Impressions 05/09/2024 2:03 PM CDT Benign intramammary lymph node RIGHT breast 6 o'clock, 7 cm from the nipple. No suspicious findings. No evidence of malignancy. RECOMMENDATIONS: Routine screening mammography. BI-RADS Category 2: Benign Dictated by: Douglas Rosales MD @05/08/2024 2:28:30 PM /sp PATIENTS: You will also receive a letter with your examination results in an easy to read format. If you have questions about your results, please contact your referring provider. Narrative 05/09/2024 2:03 PM CDT As a result of the Cures Act, medical imaging exams and procedure reports are released immediately into your electronic medical record. You may view this report before your referring provider. If you have questions, please contact your health care provider. RIGHT BREAST MAMMOGRAM DIGITAL ADDITIONAL VIEWS WITH TOMOSYNTHESIS 05/08/2024 RIGHT BREAST ULTRASOUND 05/08/2024 CLINICAL HISTORY: RIGHT breast mass/asymmetry. COMPARISON: 04/29/2024, 12/19/2022, 09/23/2020. TECHNIQUE: Digital RIGHT mammogram in two projections. Tomosynthesis was used in this interpretation. Real-time ultrasound imaging of RIGHT breast with imaging documentation. BREAST COMPOSITION: There are scattered areas of fibroglandular density. FINDINGS: 3D spot compression CC/MLO RIGHT breast mammogram images submitted. Persistent nodular density in the inferior breast without architectural distortion or suspicious calcifications. Targeted RIGHT breast ultrasound performed at 6 o'clock, 7 cm from the nipple. In this location, there is a benign intramammary lymph node with a central fatty hilum measuring 5 x 4 x 3 mm. No abnormal vascularity. us Lesvia Bernal MD MAMMO Fi nal Result * LIPID PANEL (02/27/2024 8:49 AM KITCHEN BATH DESIGNER) CHOLESTEROL, TOTAL 170 <200 mg/dL [facility] HDL CHOLESTEROL 61 > OR = 50 mg/dL [facility] TRIGLYCERIDES 76 <150 mg/dL [facility] LDL-CHOLESTEROL 92 mg/dL (calc) [facility] Comment: Reference range: <100 Desirable range <100 mg/dL for primary prevention; <70 mg/dL for patients with CHD or diabetic patients with > or = 2 CHD risk factors. LDL-C is now calculated using the Leo-Sen calculation, which is a validated novel method providing better accuracy than the Friedewald equation in the estimation of LDL-C. Leo SS et al. MESERET. 2013;310(19): 8394-5025 (http://education.bLife/faq/BUS198) CHOL/HDLC RATIO 2.8 <5.0 (calc) [facility] NON HDL CHOLESTEROL 109 <130 mg/dL (calc) [facility] Comment: For patients with diabetes plus 1 major ASCVD risk factor, treating to a non-HDL-C goal of <100 mg/dL (LDL-C of <70 mg/dL) is considered a therapeutic option. Blood BLOOD SPECIMEN / Unknown 02/27/2024 8:49 AM KITCHEN BATH DESIGNER 02/27/2024 8:50 AM KITCHEN BATH DESIGNER Lesvia Bernal MD CHEMISTRY Fi nal Result Performing Organization Address City/[facility] Co de Phone Number [facility] [address] [place] [address], [facility] [address] [place] [phone] * COLONOSCOPY DIAGNOSTIC (01/01/2024 12:00 AM KITCHEN BATH DESIGNER) Lesvia Bernal MD GI PROCEDURE ORD F inal Result * ANTI HCV (09/23/2020 10:23 AM CDT) HEPATITIS C ANTIBODY Non-React liberty Non-React liberty 09/23/2020 4:23 PM CDT [facility] Comment:Antibodies to HCV no t detected; does not exclude the possibility of exposure to HCV. Blood BLOOD SPECIMEN / Unknown Venipuncture / Unknown 09/23/2020 10:23 AM CDT 09/23/2020 10:25 AM CDT Abril Perry NP SEND OUTS Final Result Performing Organization Address City/[facility]/ZIP Co de Phone Number [facility] [address] [place] [address], from Last 3 Months or Most Recently Relevant to Health Maintenance Additional Health Concerns Infection Onset Date Last Indicated CLOSTRIDIUM DIFFICILE Comment:Resolved 10/30/2023 10/30/2023 Insurance [facility] MEDICA PRIME SOLUTION HB MEDICA PRIME SOLUTIONS MR PB ONLY MEDICARE PART B HB ONLY Advance Directives * Full Code (Latest Code Status on File) Date Activated Date Inactivated Comments 04/13/2020 7:40 AM 04/13/2020 12:18 PM Question Answer Comments Code Status Discussion: Discussed * Full Code Date Activated Date Inactivated Comments 04/11/2015 11:25 AM 04/13/2015 2:56 PM Question Answer Comments Code Status Discussion: Discussed * Full Code Date Activated Date Inactivated Comments 04/10/2015 6:28 PM 04/11/2015 11:25 AM Question Answer Comments Code Status Discussion: Discussed Care Teams Youth Associate Relationship Specialty Start Date End Date Lesvia Bernal MD [address] [facility] [place] [address] PCP - General Family Practice 11/13/23
--- OUTSIDE RECORDS SUMMARY | 2024-10-14 19:13 | XMS_ITS | Clinical Summary ---
Author Organization [facility] Address [address] [address] Phone Care Team Providers Care Event Promotions Coordinator Name Role Phone Unavailable Primary Care Provider Unavailabl e Allergies Active Allergy Reactions Criticality Noted Date Comments Penicillin G Hives 05/07/2016 Medications metoprolol succinate (TOPROL-XL) 50 MG 24 hour extended-releas e tablet Take 25 mg by mouth one time a day. Do not crush or chew. Active atorvaSTATin (LIPITOR) 10 MG tablet Take 40 mg by mouth one time a day. Active aspirin 81 MG chewable tablet Chew and swallow 81 mg one time a day. Take with food. Active buPROPion (WELLBUTRIN) 100 MG tablet Take 150 mg by mouth two times a day. Active citalopram (CELEXA) 20 MG tablet Take 20 mg by mouth one time a day. Active Calcium-Vitamin D 500-100 MG-UNIT Wafer Take 500 mg by mouth. Active VITAMIN D, CHOLECALCIFEROL , OR Take by mouth. Active Misc Natural Products (GLUCOSAMINE CHOND COMPLEX/MSM OR) Take by mouth. Active Social History Tobacco Use Types Packs/Day Years Used Date Smoking Tobacco: Never Assessed Comments Unknown Sex and Gender Information Value Date Recorded Sex Assigned at Not on file Legal Sex Female 12:07 PM CDT Gender Identity Not on file Sexual Orientation Not on file Last Filed Vital Signs Vital Sign Reading Time Taken Comments Blood Pressure 121/77 05/07/2016 12:12 PM CDT Pulse 69 05/07/2016 12:12 PM CDT Temperature 36.7 C (98 F) 05/07/2016 12:12 PM CDT Respiratory Rate 16 05/07/2016 12:12 PM CDT Oxygen Saturation 98% 05/07/2016 12:12 PM CDT Inhaled Oxygen Concentration - - Weight 59 kg (130 lb) 05/07/2016 12:12 PM CDT Height 167.6 cm (5' 6) 05/07/2016 12:12 PM CDT Body Mass Index 20.98 05/07/2016 12:12 PM CDT Plan of Treatment Not on file Insurance [facility] Commercial Address: [facility] [address] [place] [address]
--- NOTE | 2024-10-14 19:17 | CRLHL7_ITS ---
For Patients: As a result of the Century Cures Act, medical imaging exams and procedure reports are released immediately into your electronic medical record. You may view this report before your referring provider. If you have questions, please contact your health care provider. Indication: Trauma. Technique: Right shoulder, 3 views. Comparison: None. Findings/Impression: Bones: Acute minimally displaced distal clavicular fracture. Chronic changes around the greater tuberosity. Joint spaces: Mild acromioclavicular degenerative changes. Soft tissues: Unremarkable. Dictated by Lorenzo Kennedy MD @ 10/14/2024 7:56:50 PM (Electronically Signed)
[2024-10-14 19:22] VITALS: BP 130/80; PULSE 66; RESP 16; TEMP 36.5; O2SAT 96; BMI 25.0
[2024-10-14] MEDS: HYDROCODONE-ACETAMIN 5-325 MG 1 TAB PO (20:25)
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
== END 2024-10-14 21:23 | disposition home or self-care (01) ==
LOC: ED 20:40
PROVIDERS: Emergency Provider Emergency Medicine
DX: S42.001A Fracture of unspecified part of right clavicle, initial encounter for closed fracture (principal); V16.3 Person boarding or alighting a pedal cycle injured in collision with other nonmotor vehicle in nontraffic accident
CPT/HCPCS: 73030; 99282; 99283; 99284; A9270